=== PATIENT | female | born 1960 | race Caucasian/White ===

== ENCOUNTER 2023-02-28 07:52 | Emergency (ER) | payer BC ==
[~2023-02-28] VITALS: Ht 172.7 cm; Wt 83.9 kg
[2023-02-28] MEDS ORDERED: ONDANSETRON 4MG INJ IVP ONE (10:30)
[2023-02-28] MEDS ORDERED: KETAMINE 50MG/ML SYRINGE 50 MG/ML DISP.SYRIN IV ONE (10:30)
[2023-02-28] MEDS ORDERED: MORPHINE 4 MG SYG IM ONE (10:30)
[2023-02-28] MEDS ORDERED: MORPHINE 4 MG SYG IVP ONE (11:00)
[2023-02-28] MEDS ORDERED: KETAMINE 50MG/ML SYRINGE 50 MG/ML DISP.SYRIN IM ONE (11:00)
[2023-02-28] MEDS ORDERED: IBUP-2070 PO (12:33)
[2023-02-28] MEDS ORDERED: OXYC-38 PO (12:33)
[2023-02-28 13:18] VITALS: BP 116/72
== END 2023-02-28 14:12 | disposition home or self-care (01) ==
LOC: EDH 07:52
DX: S52.502A Unspecified fracture of the lower end of left radius, initial encounter for closed fracture (principal); S52.612A Displaced fracture of left ulna styloid process, initial encounter for closed fracture; F41.9 Anxiety disorder, unspecified; F32.A Depression, unspecified; Z90.49 Acquired absence of other specified parts of digestive tract; Z90.710 Acquired absence of both cervix and uterus; Z79.1 Long term (current) use of non-steroidal anti-inflammatories (NSAID); Z88.5 Allergy status to narcotic agent; W01.0XXA Fall on same level from slipping, tripping and stumbling without subsequent striking against object, initial encounter; Y93.01 Activity, walking, marching and hiking; Y92.89 Other specified places as the place of occurrence of the external cause; Y99.8 Other external cause status
CPT/HCPCS: 25605; 99284; 73100; 71045; 73090; 73110; 96374; 96375; J2405; J2270; J3490